=== PATIENT | male | born 1990 | race Hispanic/Latino ===

== ENCOUNTER 2022-06-30 23:50 | Emergency (ER) | payer OTHER ==
[~2022-06-30] VITALS: Ht 175.3 cm; Wt 102.1 kg
[2022-07-01] MEDS ORDERED: KETOROLAC TROMETHAMINE 60 MG/2 ML VIAL IM ONE (00:30)
[2022-07-01 02:00] VITALS: BP 133/84
== END 2022-07-01 02:00 | disposition home or self-care (01) ==
LOC: FSED 07-01 00:21
DX: S70.02XA Contusion of left hip, initial encounter (principal); W17.89XA Other fall from one level to another, initial encounter; Y93.01 Activity, walking, marching and hiking; Y99.0 Civilian activity done for income or pay; I10 Essential (primary) hypertension
CPT/HCPCS: 72170; 96372; 99282; J1885

== ENCOUNTER 2024-05-15 23:59 | Emergency (ER) | payer SELFPAY ==
[~2024-05-15] VITALS: Ht 177.8 cm; Wt 104.3 kg
[~2024-05-15 23:59] MED LIST: NAPROSYN500 MG PO
[2024-05-16] VITALS: PULSE 55; RESP 18; TEMP 98.4
[2024-05-16] MEDS ORDERED: DIPHENHYDRAMINE25 M2 PO (00:29)
[2024-05-16] MEDS ORDERED: IBUPROFEN200 MG PO (00:29)
[2024-05-16] MEDS ORDERED: AMOX TR-K CLV1 EAC2 PO (00:29)
[2024-05-16] MEDS: IBUPROFEN 200 MG TAB PO ONE (00:49)
[2024-05-16] MEDS: ONDANSETRON HCL 4 MG ORAL DISINTEGRATING TAB PO ONE (00:50)
[2024-05-16] MEDS: TRAMADOL HCL 50 MG TAB PO ONE (00:50)
[2024-05-16] MEDS: ACETAMINOPHEN 325 MG TAB PO ONE (00:50)
[2024-05-16] MEDS: CEFTRIAXONE 1 GM VIAL IM ONE (00:51)
[2024-05-16 00:59] VITALS: BP 137/84; PULSE 62; RESP 18; TEMP 98.3; O2SAT 98
== END 2024-05-16 01:00 | disposition home or self-care (01) ==
LOC: FSED 05-16 00:02
DX: K08.89 Other specified disorders of teeth and supporting structures (principal); K02.9 Dental caries, unspecified
CPT/HCPCS: 99283; J0696; Q0162